=== PATIENT | male | born 1995 | race Caucasian/White ===

== ENCOUNTER 2020-05-17 21:09 | Emergency (ER) | payer OTHER ==
[2020-05-17 21:25] VITALS: TEMP 98.9
[2020-05-17] MEDS ORDERED: MORPHINE SULFATE 4 MG/ML SYRINGE IV STA (21:40)
--- NOTE | 2020-05-17 22:01 | XR ---
EXAMINATION TYPE: XR mandible complete DATE OF EXAM: 05/17/2020 COMPARISON: NONE HISTORY: Right lower jaw pain. Parotid/submandibular adenopathy per order. TECHNIQUE: Complete mandibular series with open and closed mouth frontal views along with both obliqu e and single lateral projection. FINDINGS: No acute fracture or dislocation the mandible. No definitive radiodense sialolith. Numerous cavitary fillings to the bilateral maxillary and mandibular teeth. IMPRESSION: As above.
[2020-05-17 22:47] LABS: ALT 13 U/L (4-49); AST 23 U/L (17-59); African American GFR (CKD) >90 (>60 ml/min/1.73 sqM); Albumin 4.5 g/dL (3.5-5.0); Alkaline Phosphatase 108 U/L (38-126); Anion Gap 8 mmol/L; Blood Urea Nitrogen 12 mg/dL (9-20); Carbon Dioxide 28 mmol/L (22-30); Chloride 103 mmol/L (98-107); Glucose 94 mg/dL (74-99); Non-African American GFR(CKD) >90 (>60 ml/min/1.73 sqM); Sodium 139 mmol/L (137-145); Total Bilirubin 0.6 mg/dL (0.2-1.3); Total Protein 7.7 g/dL (6.3-8.2)
[2020-05-17 22:59] LABS: Basophils # (A) 0.1 k/uL (0-0.2); Basophils % (A) 1 %; Eosinophils # (A) 0.2 k/uL (0-0.7); Eosinophils % (A) 2 %; HCT 43.8 % (39.0-53.0); Lymphocytes % (A) 24 %; MCH 28.9 pg (25.0-35.0); MCHC 34.1 g/dL (31.0-37.0); MCV 84.5 fL (80.0-100.0); Mean Platelet Volume 7.5; Monocytes # (A) 0.7 k/uL (0-1.0); Monocytes % (A) 8 %; Neutrophils # (A) 5.3 k/uL (1.3-7.7); Neutrophils % (A) 63 %; Platelet Count 220 k/uL (150-450); RBC 5.19 m/uL (4.30-5.90); RDW 12.3 % (11.5-15.5); WBC 8.3 k/uL (3.8-10.6)
--- NOTE | 2020-05-17 23:03 | US ---
EXAMINATION TYPE: US thyroid st tissue head/neck DATE OF EXAM: 05/17/2020 COMPARISON: NONE CLINICAL HISTORY: right parotid / submandibular lymphadenopathy. Right neck and jaw pain Right neck submandibular area of pain and swelling: multiple lymph nodes seen with largest measuring 2.6 x 1.3 x 3.0cm IMPRESSION: There is evidence of some enlarged submandibular lymph nodes on the right side and the la rgest Measures 2.6 x 1.3 cm. No evidence of an abscess.
[2020-05-17] MEDS ORDERED: SULFAMETH-TMP DS STARTER PACK 2 TAB BTL PO STA (23:13)
[2020-05-17] MEDS ORDERED: ACET/COD 300 MG/30 MG STARTER PACK 6 TAB BTL PO STA (23:13)
--- NOTE | 2020-05-17 23:14 | ED ---
General Adult HPI - General Chief complaint: Dental/Oral Stated complaint: Abscessed tooth Time Seen by Provider: 05/17/20 21:15 Source: patient, RN notes reviewed, old records reviewed Mode of arrival: ambulatory Limitations: no limitations - History of Present Illness Initial comments: 25-year-old male patient is a 51 complaint of lymphadenopathy right s ubmandibular region. Patient reports that he has poor dentition at baseline. He was having dental pain on . Right posterior molar region. He went to a hospital up in [place] where they initiated him on amoxicillin. Patient was having swelling on the right side at that time. Patient reports that since then he continued to have dental pain and the lymphadenopathy has gotten worse. Denies any documented fevers at home. Denies any other complaints. Systemic: Pt denies fatigue, fever/chills, rash. Pt denies weakness, night sweats, weight loss. Neuro: Pt denies headache, visual disturbances, syncope or pre-syncope. HEENT: Pt denies ocular discharge or irritation, otalgia, rhinorrhea, pharyngitis. Cardiopulmonary: Pt denies chest pain, SOB, heart palpitations, dyspnea on exertion. Abdominal/GI: Pt denies abdominal pain, n/v/d. : Pt denies dysuria, burning w/ urination, frequency/urgency. Denies new onset urinary or bowel incontinence. MSK: Pt denies myalgia, loss of strength or function in extremities. Neuro: Pt denies new onset weakness, paresthesias. - Related Data Previous Rx's Medication Instructions Recorded Clindamycin HCl [Cleocin] 450 mg PO Q8HR 7 Days #63 cap 05/17/20 Sulfamethox-Tmp 800-160Mg [Bactrim 1 tab PO Q12HR 10 Days #20 tab 05/17/20 DS 800-160 mg] Allergies Allergy/AdvReac Type Severity Reaction Status Date / Time loratadine [From Claritin] Allergy Unknown Verified 05/17/20 21:25 Penicillins Allergy Unknown Verified 05/17/20 21:25 Review of Systems ROS Statement: Those systems with pertinent positive or pertinent negative responses have been documented in the HPI. ROS Other: All systems not noted in ROS Statement are negative. Past Medical History Past Medical History: No Reported History History of Any Multi-Drug Resistant Organisms: None Reported Past Surgical History: No Surgical Hx Reported Past Psychological History: No Psychological Hx Reported Smoking Status: Current every day smoker Past Alcohol Use History: Occasional Past Drug Use History: Marijuana General Exam - General Exam Comments Initial Comments: Constitutional: NAD, AOX3, Pt has pleasant affect. HEENT: NC/AT, trachea midline. Posterior pharynx non erythematous, without exudates. External ears appear normal, without discharge. Mucous membranes moist. Eyes PERRLA, EOM intact. There is no scleral icterus. No pallor noted. Poor dentition is noted throughout. Right lower gum region has multiple fractured teeth with surrounding gum erythema. No abscess or drainage. Right- sided adenopathy is noted submandibular Cardiopulmonary: RRR, no murmurs, rubs or gallops, no JVD noted. Lungs CTAB in anterior and posterior anna. No peripheral edema. Abdominal exam: Abdomen soft and non-distended. Abdomen non-tender to palpation in all 4 quadrants. Bowel sounds active in LLQ. No hepatosplenomegaly. No ecchymosis Neuro: CN II-XII grossly intact. No nuchal rigidity. No raccon eyes, no goldsmith sign, no hemotympanum. No cervical spinal tenderness. MSK: No posterior calf tenderness bilaterally, homans sign negative bilaterally. Posterior tibialis and radial pulse +2 bilaterally. Sensation intact in upper and lower extremities. Full active ROM in upper and lower extremities, 5/5 stregnth. Limitations: no limitations Course Vital Signs 05/17/20 05/17/20 21:21 23:28 Temperature 98.9 F 98.9 F Pulse Rate 59 L 56 L Respiratory 18 20 Rate Blood Pressure 138/95 144/84 O2 Sat by Pulse 98 99 Oximetry Medical Decision Making - Medical Decision Making 25-year-old male patient is ED for chief complaint of dental pain and right- sided facial swelling. Patient felt symptoms are stable, afebrile. Physical exam slight poor dentition throughout no abscess. Gum erythema. Right 70 lymphadenopathy. Ultrasound was obtained. This displayed evidence of enlargement of the lymph nodes on the right side large measuring 2.6 x 1.2 cm. No evidence of an abscess. Plain films displayed no acute fracture distal patient mandible. Numerous cavitary fillings. Laboratory investigations were noncompressive. Patient pain is improved in ED. Patient reports that he believes he is ALLERGIC to penicillin and has had no improvement, request change. Patient be changed to clindamycin also have added Bactrim coverage. Patient will follow up with primary care provider dentist tomorrow, asha chou [facility] ED if condition worsens. Case discussed with Dr. Yoon. - Lab Data Result diagrams: 05/17/20 22:25 05/17/20 22:25 Lab Results 05/17/20 05/17/20 Range/Units 22:25 22:25 WBC 8.3 (3.8-10.6) k/uL RBC 5.19 (4.30-5.90) m/uL Hgb 15.0 (13.0-17.5) gm/dL Hct 43.8 (39.0-53.0) % MCV 84.5 (80.0-100.0) fL MCH 28.9 (25.0-35.0) pg MCHC 34.1 (31.0-37.0) g/dL RDW 12.3 (11.5-15.5) % Plt Count 220 (150-450) k/uL Neutrophils % 63 % Lymphocytes % 24 % Monocytes % 8 % Eosinophils % 2 % Basophils % 1 % Neutrophils # 5.3 (1.3-7.7) k/uL Lymphocytes # 2.0 (1.0-4.8) k/uL Monocytes # 0.7 (0-1.0) k/uL Eosinophils # 0.2 (0-0.7) k/uL Basophils # 0.1 (0-0.2) k/uL Sodium 139 (137-145) mmol/L Potassium 4.0 (3.5-5.1) mmol/L Chloride 103 (98-107) mmol/L Carbon Dioxide 28 (22-30) mmol/L Anion Gap 8 mmol/L BUN 12 (9-20) mg/dL Creatinine 0.55 L (0.66-1.25) mg/dL Est GFR (CKD-EPI)AfAm >90 (>60 ml/min/1.73 sqM) Est GFR (CKD-EPI)NonAf >90 (>60 ml/min/1.73 sqM) Glucose 94 (74-99) mg/dL Calcium 10.0 (8.4-10.2) mg/dL Total Bilirubin 0.6 (0.2-1.3) mg/dL AST 23 (17-59) U/L ALT 13 (4-49) U/L Alkaline Phosphatase 108 (38-126) U/L Total Protein 7.7 (6.3-8.2) g/dL Albumin 4.5 (3.5-5.0) g/dL Disposition Clinical Impression: Lymphadenopathy, Poor dentition Disposition: HOME SELF-CARE Condition: Stable Instructions (If sedation given, give patient instructions): Lymphadenopathy (ED), Toothache (ED) Additional Instructions: Take antibiotic as directed. Follow up with primary care provider and dentist tomorrow. Return to ER if condition worsens in any way. Prescriptions: Sulfamethox-Tmp 800-160Mg [Bactrim DS 800-160 mg] 1 tab PO Q12HR 10 Days #20 tab Clindamycin HCl [Cleocin] 450 mg PO Q8HR 7 Days #63 cap Is patient prescribed a controlled substance at d/c from ED?: No Referrals: None,Stated [Primary Care Provider] - 1-2 days Parviz Ryan MD [REFERRING] - 1-2 days Kathy Walker DDS [STAFF PHYSICIAN] - 1-2 days Paul Mujica DDS [STAFF PHYSICIAN] - 1-2 days Gwen Syed DDS [STAFF PHYSICIAN] - 1-2 days
[2020-05-17] MEDS ORDERED: CLINDAMYCIN 150 MG CAP PO STA (23:21)
[2020-05-17 23:29] VITALS: BP 144/84; PULSE 56; RESP 20
== END 2020-05-17 23:28 | disposition home or self-care (01) ==
LOC: EC 21:09
DX: K08.9 Disorder of teeth and supporting structures, unspecified (principal); R59.0 Localized enlarged lymph nodes; F17.200 Nicotine dependence, unspecified, uncomplicated; Z88.0 Allergy status to penicillin; Z88.8 Allergy status to other drugs, medicaments and biological substances
CPT/HCPCS: 36415; 80053; 85025; 70110; 76536; 99284; 96374; J2270